=== PATIENT | female | born 1960 | race Caucasian/White ===

== ENCOUNTER 2020-06-05 13:06 | Day surgery (SDC) | payer OTHER ==
[~2020-06-05] VITALS: Ht 167.6 cm; Wt 82.7 kg
[~2020-06-05 13:06] MED LIST: ANASTROZOLE1 M1 PO; Cymbalta20 MG PO; Prinivil10 MG PO
--- NOTE | 2020-06-05 13:55 | NUR ---
06/05/20 [facility]5 Daphney Laws 1 TRY RIGHT HAND VALVE
== END 2020-06-05 16:16 | disposition home or self-care (01) ==
LOC: ORSCSDS 13:06
PROVIDERS: Internal Medicine Gastroenterology
PROC: 0DJD8ZZ Inspection of Lower Intestinal Tract, Via Natural or Artificial Opening Endoscopic (ICD-10-PCS; principal; 2020-06-05 14:00)
DX: K56.699 Other intestinal obstruction unspecified as to partial versus complete obstruction (principal); I10 Essential (primary) hypertension; K57.30 Diverticulosis of large intestine without perforation or abscess without bleeding; Z79.899 Other long term (current) drug therapy
CPT/HCPCS: J2704; J7120

== ENCOUNTER 2020-07-06 06:12 | Inpatient (IN) | payer OTHER ==
[~2020-07-06] VITALS: Ht 167.6 cm; Wt 78.1 kg
[~2020-07-06 06:12] MED LIST changes: +ERGO400 PO; +METAMUCIL POWD575 GM
--- NOTE | 2020-07-06 10:18 | NUR ---
1000 ARRIVED TO ROOM VIA BED. PT SLEEPING, OPENS EYES BRIEFLY TO VERBAL STIMULI. RESP EVEN AND UNLABORED. TRANSVERSE ABD DRESSING CLEAN, DRY, INTACT. PAULETTE IN PLACE AND IS FUNCTIONING
--- NOTE | 2020-07-06 17:31 | NUR ---
SUMMARY PT REPORTS PAIN WELL CONTROLLED, DENIES NAUSEA. OOB TO RESTROOM WITH STANDBY ASSIST. ABD DRESSING DRY AND INTACT, PAULETTE FUNCTIONING
--- NOTE | 2020-07-06 22:41 | NUR ---
HAD FIRST BM WITHOUT ISSUES AFTER ASSISTANCE WITH AMBULATING TO AND FROM BATHROOM, TOLERATED WELL.
[2020-07-07 04:47] LABS: BASOPHILS ABSOLUTE AUTO 0.02 K/mm3 (0.00-0.23); BASOPHILS PERCENT AUTO 0 % (0-2); EOSINOPHILS ABSOLUTE AUTO 0.01 K/mm3 (0.00-0.68); EOSINOPHILS PERCENT AUTO 0 % (0-6); Hematocrit 37.5 % (33.0-51.0); Hemoglobin 12.3 g/dL (11.5-16.0); IMMATURE GRAN ABSOLUTE AUTO 0.02 K/mm3 (0.00-0.10); IMMATURE GRAN PERCENT AUTO 0 % (0-1); LYMPHOCYTES ABSOLUTE AUTO 1.77 K/mm3 (0.84-5.20); LYMPHOCYTES PERCENT AUTO 20 % (21-46); MONOCYTES PERCENT AUTO 9 % (4-13); Mean Corpuscular HGB 31.3 pg (26.0-34.0); Mean Corpuscular HGB Conc 32.8 g/dL (31.5-36.5); Mean Corpuscular Volume 95 fL (80-100); NEUTROPHILS ABSOLUTE AUTO 6.45 K/mm3 (1.96-9.15); NEUTROPHILS PERCENT AUTO 71 % (41-73); Platelet Count 179 K/mm3 (150-400); RDW Coefficient Variation 12.1 % (11.7-14.2); RDW Standard Deviation 42.3 fL (35.1-46.3); Red Blood Cell Count 3.93 M/mm3 (3.80-5.20); White Blood Cell Count 9.07 K/mm3 (4.00-11.30)
[2020-07-07 05:03] LABS: Anion Gap 7 mmol/L (6-16); Blood Urea Nitrogen 18 mg/dL (8-24); CO2, Blood 23 mmol/L (21-32); Calcium, Blood 8.2 mg/dL (8.5-10.1); Chloride, Blood 112 mmol/L (98-108); Glomerular Filtration Rate >60 (60-); Glucose, Blood 105 mg/dL (70-99); Potassium, Blood 3.8 mmol/L (3.5-5.5); Sodium, Blood 142 mmol/L (136-145)
--- NOTE | 2020-07-07 06:12 | NUR ---
SHIFT SUMMARY LYING IN SEMI FOWLERS WITH EYES CLOSED, SLEPT OFF AND ON. AMBULATED TO BATHROOM WITH STANDBY ASSIST TO URINATE AND HAVE BM'S, TOLERATED WELL. IVF CONTINUED THROUGHOUT SHIFT PER PT REQUEST. PO PAIN MEDS ADMINISTERED X2 PER PT REQUEST. TRANSVERSE LOWER ABD PAUELTTE IS C/D/I. PASSES FLATUS AND BM'S WITHOUT PAIN. NO SIGNIFICANT CHANGES NOTED THIS SHIFT. DENEIS FURTHER NEEDS OR WANTS AT THIS TIME. SAFETY MEASURES IN PLACE. WILL CONTINUE TO MOITOR UNTIL HABD OFF TO ONCOMING SHIFY USING SBAR.
--- NOTE | 2020-07-07 18:24 | NUR ---
summary pt has declined need for pain medication throughout shift. ambulating in room and halls. helene regular diet without nausea. pt anticipated discharge home tomorrow
--- NOTE | 2020-07-08 05:42 | NUR ---
SHIFT SUMMARY POD2 ILEOSTOMY TAKEDOWN, A/O X4, VSS, TOLERATING PO, VOIDING WELL, PASSING FLATUS/HAVING BM'S, PAIN WELL CONTROLLED (SEE EMAR). PT IS CALM AND COOPERATIVE W/ ALL NURSING CARE, DOES NOT HAVE ANY CONCERNS AT THIS TIME, PLAN TO DC IN THE MORNING. CALL LIGHT IN REACH, WILL CONTINUE TO MONITOR AND REPORT TO ONCOMING DAY RN.
--- NOTE | 2020-07-08 08:55 | NUR ---
REPORTS TOLERATING REGULAR DIET WELL, DENIES ANY NAUSEA OR ABD DISCOMFORT AFTER EATING, REPORTS HAVING SOFT FORMED STOOL THIS AM, ABD SOFT AND NONTENDER, PAULETTE DSG INTACT.
[2020-07-08] MEDS ORDERED: Norco 5-325 Ta1 EACH PO (15:01)
== END 2020-07-08 15:46 | disposition home or self-care (01) | DRG 331 ==
LOC: SURS 06:12
PROVIDERS: ADMIT Surgery
PROC: 3E0234Z Introduction of Serum, Toxoid and Vaccine into Muscle, Percutaneous Approach (ICD-10-PCS; 2020-07-06)
PROC: 0DQB0ZZ Repair Ileum, Open Approach (ICD-10-PCS; principal; 2020-07-06 07:30)
DX: Z43.2 Encounter for attention to ileostomy (principal); I10 Essential (primary) hypertension; F43.10 Post-traumatic stress disorder, unspecified; F41.9 Anxiety disorder, unspecified; Z23 Encounter for immunization
CPT/HCPCS: 36415; 80048; 85025; 88304; A9270; J0690; J1100; J1650; J1885; J2250; J2370; J2405; J2550; J2704; J2765; J3010; J7120; Q2038